=== PATIENT | male | born 1990 | race Hispanic/Latino ===

== ENCOUNTER 2017-10-12 23:25 | Emergency (ER) | payer BC ==
[~2017-10-12] VITALS: Ht 170.2 cm; Wt 83.5 kg
[2017-10-12] MEDS ORDERED: ONDANSETRON HCL INJ 2 MG/ML VIAL IV STA (23:31)
[2017-10-12] MEDS ORDERED: SODIUM CHLORIDE 0.9% 1000ML 1,000 ML IV STA (23:31)
[2017-10-13] MEDS ORDERED: IOPAMIDOL 300MG/ML 100 ML INFUS..BTL IV ONE (01:15)
[2017-10-13 01:17] VITALS: BP 134/72
[2017-10-13] MEDS ORDERED: DONNATAL/LIDOCAINE/MAALOX 30 ML SUSP PO SCH (09:00)
== END 2017-10-13 01:10 | disposition home or self-care (01) ==
LOC: FSED 23:25
DX: R10.13 Epigastric pain (principal); R11.0 Nausea
CPT/HCPCS: 99284; J2405; J7030; Q9967